=== PATIENT | male | born 1955 | race Two or more races ===

== ENCOUNTER → 2025-03-22 | Outpatient (CLI) | payer OTHER ==
[2025-03-22 09:29] LABS: Hemoglobin 9.6 g/dL (13.5-17.5); Mean Corpuscular Hemoglobin 31.8 pg (28.0-32.0); Mean Corpuscular Hgb Conc. 33.1 g/dL (32.0-36.0); Mean Corpuscular Volume 96.1 fL (80.0-100.0); Platelet Count (auto) 287 10^3/uL (140-450); Red Blood Cells 3.02 10^6/uL (4.5-5.90); Red Cell Distribution Width 19.6 % (11.8-14.3); White Blood Cell 6.6 10^3/uL (4.4-10.8)
[2025-03-22 09:56] LABS: Band Neutrophils % (manual) 0; Basophils % (manual) 0 (0.0-2.0); Blast Cells 0; Metamyelocytes % 0; Myelocytes % 0; Promyelocytes % 0
[2025-03-22 10:08] LABS: Alkaline Phosphatase 95 U/L (46-116); Anion Gap 10 (5-15); BUN/Creatinine Ratio 18.2 (10.0-20.0); Blood Urea Nitrogen 16 mg/dL (9-23); Calcium 9.1 mg/dL (8.7-10.4); Carbon Dioxide 28 mmol/L (20-31); Glucose 94 mg/dL (74-106); Potassium 3.8 mmol/L (3.5-5.1); Sodium 145 mmol/L (136-145)
[2025-03-22 10:09] LABS: Alanine Aminotransferase 9 U/L (7-40); Chloride 107 mmol/L (98-107); Total Protein 6.5 g/dL (5.7-8.2)
[2025-03-22 10:10] LABS: Albumin 3.9 g/dL (3.2-4.8)
[2025-03-22 10:11] LABS: % Iron Saturation 14.1 % (20-55); Aspartate Aminotransferase < 8 U/L (13-40); Bilirubin, Total 0.6 mg/dL (0.2-1.0)
[2025-03-22 11:31] LABS: Eosinophils % (manual) 1 (0-7); Reactive Lymphocytes 1
[2025-03-22 11:32] LABS: Anisocytosis Slight; Lymphocytes % (manual) 29 (10.0-50.0); Monocytes % (manual) 22 (0-12); Platelet Estimate Adequate
[2025-03-23 08:07] LABS: Immunoglobulin G, Serum 441 mg/dL (603-1613); Immunoglobulin M 12 mg/dL (15-143)
[2025-03-23 10:07] LABS: Immunoglobulin A 1420 mg/dL (61-437)
[2025-03-23 11:07] LABS: Kappa Lite Chain Free Serum 207.2 mg/L (3.3-19.4)
[2025-03-23 16:07] LABS: Albumin 3.5 g/dL (2.9-4.4); Alpha-1-Globulin 0.2 g/dL (0.0-0.4); Alpha-2-Globulin 0.6 g/dL (0.4-1.0); Gamma Globulin 0.5 g/dL (0.4-1.8); Globulin Total 2.8 g/dL (2.2-3.9); Protein Total Serum 6.3 g/dL (6.0-8.5)
== END | disposition home or self-care (01) ==
LOC: LAB 09:01
PROVIDERS: ATTEND Student in an Organized Health Care Education/Training Program
DX: C90.00 Multiple myeloma not having achieved remission (principal); D51.9 Vitamin B12 deficiency anemia, unspecified; D64.9 Anemia, unspecified
CPT/HCPCS: 36415; 80053; 82728; 82784; 83521; 83540; 83550; 83615; 84155; 84165; 85007; 85027; 86334

== ENCOUNTER 2025-04-12 07:32 | Outpatient (CLI) | payer OTHER ==
[2025-04-12 08:18] LABS: Hematocrit 27.4 % (41.0-53.0); Hemoglobin 9.4 g/dL (13.5-17.5); Mean Corpuscular Hemoglobin 31.8 pg (28.0-32.0); Mean Corpuscular Hgb Conc. 34.3 g/dL (32.0-36.0); Mean Corpuscular Volume 92.8 fL (80.0-100.0); Platelet Count (auto) 219 10^3/uL (140-450); Red Blood Cells 2.96 10^6/uL (4.5-5.90); Red Cell Distribution Width 18.2 % (11.8-14.3); White Blood Cell 3.1 10^3/uL (4.4-10.8)
[2025-04-12 08:21] LABS: Albumin 3.9 g/dL (3.2-4.8); Alkaline Phosphatase 73 U/L (46-116); Anion Gap 10 (5-15); BUN/Creatinine Ratio 21.1 (10.0-20.0); Blood Urea Nitrogen 19 mg/dL (9-23); Carbon Dioxide 27 mmol/L (20-31); Glucose 87 mg/dL (74-106); Total Protein 6.1 g/dL (5.7-8.2)
[2025-04-12 08:22] LABS: Alanine Aminotransferase < 9 U/L (7-40); Aspartate Aminotransferase < 8 U/L (13-40); Band Neutrophils % (manual) 0; Basophils % (manual) 0 (0.0-2.0); Blast Cells 0; Chloride 109 mmol/L (98-107); Metamyelocytes % 0; Myelocytes % 0; Potassium 3.3 mmol/L (3.5-5.1); Promyelocytes % 0; Sodium 146 mmol/L (136-145)
[2025-04-12 11:49] LABS: Eosinophils % (manual) 4 (0-7); Lymphocytes % (manual) 63 (10.0-50.0); Monocytes % (manual) 10 (0-12); Platelet Estimate Adequate; Reactive Lymphocytes 5
[2025-04-13 08:07] LABS: Immunoglobulin A 953 mg/dL (61-437); Immunoglobulin G, Serum 430 mg/dL (603-1613); Immunoglobulin M 7 mg/dL (15-143)
[2025-04-13 17:07] LABS: Kappa Lite Chain Free Serum 43.9 mg/L (3.3-19.4)
[2025-04-14 06:07] LABS: Albumin 3.4 g/dL (2.9-4.4); Alpha-1-Globulin 0.2 g/dL (0.0-0.4); Alpha-2-Globulin 0.6 g/dL (0.4-1.0); Gamma Globulin 0.5 g/dL (0.4-1.8); Globulin Total 2.7 g/dL (2.2-3.9); Protein Total Serum 6.1 g/dL (6.0-8.5)
== END 2025-04-12 17:00 | disposition home or self-care (01) ==
LOC: LAB 07:32
PROVIDERS: ATTEND Student in an Organized Health Care Education/Training Program
DX: C90.00 Multiple myeloma not having achieved remission (principal); D51.9 Vitamin B12 deficiency anemia, unspecified
CPT/HCPCS: 36415; 80053; 82784; 83521; 83615; 84155; 84165; 85007; 85027

== ENCOUNTER → 2025-05-03 | Outpatient (CLI) | payer OTHER ==
[2025-05-03 08:34] LABS: Hematocrit 28.9 % (41.0-53.0); Hemoglobin 9.8 g/dL (13.5-17.5); Mean Corpuscular Hemoglobin 31.9 pg (28.0-32.0); Mean Corpuscular Volume 94.3 fL (80.0-100.0)
[2025-05-03 09:58] LABS: Total Cells Counted 100.0 (100)
[2025-05-04 08:07] LABS: Immunoglobulin A 513 mg/dL (61-437); Immunoglobulin G, Serum 394 mg/dL (603-1613); Immunoglobulin M 10 mg/dL (15-143)
[2025-05-04 11:07] LABS: Kappa Lite Chain Free Serum 55.8 mg/L (3.3-19.4)
== END | disposition home or self-care (01) ==
LOC: LAB 08:13
PROVIDERS: ATTEND Internal Medicine
DX: C90.00 Multiple myeloma not having achieved remission (principal); D51.9 Vitamin B12 deficiency anemia, unspecified; D64.9 Anemia, unspecified
CPT/HCPCS: 36415; 82232; 82784; 83521; 83615; 84155; 84165; 85007; 85027; 86334

== ENCOUNTER 2025-05-09 08:23 | Outpatient (CLI) | payer OTHER ==
[2025-05-09 09:01] LABS: Hematocrit 30.6 % (41.0-53.0); Hemoglobin 10.4 g/dL (13.5-17.5); Mean Corpuscular Hemoglobin 32.2 pg (28.0-32.0); Mean Corpuscular Volume 94.6 fL (80.0-100.0); Nucleated Red Blood Cells % 0.1 %
[2025-05-09 09:20] LABS: Albumin 4.0 g/dL (3.2-4.8); Alkaline Phosphatase 80 U/L (46-116); Anion Gap 9 (5-15); BUN/Creatinine Ratio 20.2 (10.0-20.0); Bilirubin, Total 0.7 mg/dL (0.2-1.0); Blood Urea Nitrogen 19 mg/dL (9-23); Calcium 9.7 mg/dL (8.7-10.4); Carbon Dioxide 27 mmol/L (20-31); Potassium 4.1 mmol/L (3.5-5.1); Sodium 144 mmol/L (136-145); Total Protein 5.8 g/dL (5.7-8.2)
[2025-05-09 09:25] LABS: Alanine Aminotransferase < 9 U/L (7-40); Chloride 108 mmol/L (98-107); Glucose 129 mg/dL (74-106)
== END 2025-05-09 19:24 | disposition home or self-care (01) ==
LOC: LAB 08:23
PROVIDERS: ATTEND Student in an Organized Health Care Education/Training Program
DX: C90.00 Multiple myeloma not having achieved remission (principal); D51.9 Vitamin B12 deficiency anemia, unspecified
CPT/HCPCS: 36415; 80053; 85025

== ENCOUNTER 2025-05-16 07:15 | Outpatient (CLI) | payer OTHER ==
[2025-05-16 08:20] LABS: Hematocrit 32.2 % (41.0-53.0); Hemoglobin 10.8 g/dL (13.5-17.5); Mean Corpuscular Hemoglobin 31.7 pg (28.0-32.0); Mean Corpuscular Volume 94.5 fL (80.0-100.0); Nucleated Red Blood Cells % 0.0 %
[2025-05-16 08:41] LABS: Alkaline Phosphatase 76 U/L (46-116); Anion Gap 10 (5-15); BUN/Creatinine Ratio 26.0 (10.0-20.0); Calcium 9.5 mg/dL (8.7-10.4); Carbon Dioxide 28 mmol/L (20-31); Chloride 107 mmol/L (98-107); Glucose 102 mg/dL (74-106); Potassium 3.5 mmol/L (3.5-5.1); Sodium 145 mmol/L (136-145); Total Protein 6.1 g/dL (5.7-8.2)
[2025-05-16 08:42] LABS: Albumin 4.3 g/dL (3.2-4.8)
[2025-05-16 08:43] LABS: Bilirubin, Total 0.7 mg/dL (0.2-1.0)
[2025-05-16 08:44] LABS: Alanine Aminotransferase 9 U/L (7-40); Blood Urea Nitrogen 26 mg/dL (9-23)
[2025-05-17 08:07] LABS: Immunoglobulin A 503 mg/dL (61-437); Immunoglobulin G, Serum 418 mg/dL (603-1613); Immunoglobulin M 12 mg/dL (15-143)
[2025-05-17 11:07] LABS: Kappa Lite Chain Free Serum 48.5 mg/L (3.3-19.4)
== END 2025-05-16 17:00 | disposition home or self-care (01) ==
LOC: LAB 07:15
PROVIDERS: ATTEND Internal Medicine
DX: C90.00 Multiple myeloma not having achieved remission (principal); D51.9 Vitamin B12 deficiency anemia, unspecified; D64.9 Anemia, unspecified
CPT/HCPCS: 36415; 80053; 82232; 82784; 83521; 83615; 84155; 84165; 85025; 86334

== ENCOUNTER 2025-05-24 06:55 | Outpatient (CLI) | payer OTHER ==
[2025-05-24 07:38] LABS: Hematocrit 34.0 % (41.0-53.0); Hemoglobin 11.4 g/dL (13.5-17.5); Mean Corpuscular Hemoglobin 31.5 pg (28.0-32.0); Mean Corpuscular Volume 94.2 fL (80.0-100.0); Nucleated Red Blood Cells % 0.0 %
[2025-05-24 08:00] LABS: Albumin 4.2 g/dL (3.2-4.8); Alkaline Phosphatase 83 U/L (46-116); Anion Gap 9 (5-15); BUN/Creatinine Ratio 17.6 (10.0-20.0); Bilirubin, Total 0.5 mg/dL (0.2-1.0); Blood Urea Nitrogen 16 mg/dL (9-23); Calcium 9.2 mg/dL (8.7-10.4); Carbon Dioxide 30 mmol/L (20-31); Chloride 106 mmol/L (98-107); Glucose 93 mg/dL (74-106); Total Protein 6.0 g/dL (5.7-8.2)
[2025-05-24 08:07] LABS: Potassium 3.3 mmol/L (3.5-5.1); Sodium 145 mmol/L (136-145)
[2025-05-24 08:08] LABS: Alanine Aminotransferase 9 U/L (7-40)
[2025-05-25 05:08] LABS: Immunoglobulin A 470 mg/dL (61-437); Immunoglobulin G, Serum 410 mg/dL (603-1613); Immunoglobulin M 12 mg/dL (15-143)
[2025-05-25 11:07] LABS: Kappa Lite Chain Free Serum 41.9 mg/L (3.3-19.4)
== END 2025-05-24 17:00 | disposition home or self-care (01) ==
LOC: LAB 06:55
PROVIDERS: ATTEND Internal Medicine
DX: C90.00 Multiple myeloma not having achieved remission (principal); D51.9 Vitamin B12 deficiency anemia, unspecified; D64.9 Anemia, unspecified
CPT/HCPCS: 36415; 80053; 82232; 82784; 83521; 83615; 84155; 84165; 85025; 86334

== ENCOUNTER → 2025-06-01 | Outpatient (CLI) | payer OTHER ==
[2025-06-01 07:35] LABS: Hematocrit 33.5 % (41.0-53.0); Hemoglobin 11.6 g/dL (13.5-17.5); Mean Corpuscular Hemoglobin 32.1 pg (28.0-32.0); Mean Corpuscular Volume 92.8 fL (80.0-100.0); Nucleated Red Blood Cells % 0.0 %
[2025-06-01 07:50] LABS: Alanine Aminotransferase 13 U/L (7-40); Albumin 4.1 g/dL (3.2-4.8); Alkaline Phosphatase 83 U/L (46-116); Anion Gap 8 (5-15); BUN/Creatinine Ratio 14.0 (10.0-20.0); Bilirubin, Total 0.6 mg/dL (0.2-1.0); Blood Urea Nitrogen 13 mg/dL (9-23); Calcium 9.0 mg/dL (8.7-10.4); Carbon Dioxide 32 mmol/L (20-31); Chloride 104 mmol/L (98-107); Glucose 101 mg/dL (74-106); Potassium 3.6 mmol/L (3.5-5.1); Sodium 144 mmol/L (136-145); Total Protein 5.8 g/dL (5.7-8.2)
[2025-06-02 07:07] LABS: Immunoglobulin A 413 mg/dL (61-437); Immunoglobulin G, Serum 376 mg/dL (603-1613); Immunoglobulin M 12 mg/dL (15-143)
[2025-06-02 08:07] LABS: Kappa Lite Chain Free Serum 40.0 mg/L (3.3-19.4)
== END | disposition home or self-care (01) ==
LOC: LAB 06:56
PROVIDERS: ATTEND Internal Medicine
DX: C90.00 Multiple myeloma not having achieved remission (principal); D64.9 Anemia, unspecified; D51.9 Vitamin B12 deficiency anemia, unspecified
CPT/HCPCS: 36415; 80053; 82232; 82784; 83521; 83615; 84155; 84165; 85025; 86334